=== PATIENT | female | born 1970 | race Caucasian/White ===

== ENCOUNTER → 2018-01-27 | Outpatient (CLI) | payer BC ==
--- NOTE | 2018-01-28 09:17 | US ---
EXAMINATION TYPE: US thyroid st tissue head/neck DATE OF EXAM: 01/27/2018 COMPARISON: NONE CLINICAL HISTORY: E039 hypothyroidism, R53.83 Fatigue. GLAND SIZE: Right Lobe: 4.7 x 1.8 x 1.5 cm Overall Parenchyma: heterogenous Left Lobe: 4.6 x 1.6 x 1.2 cm Overall Parenchyma: heterogeneous Isthmus Thickness: 0.4 cm NODULES RIGHT: # of nodules measured on right: 0 LEFT: # of nodules measured on left: 0 ISTHMUS: # of nodules measured in the isthmus: 0 Diffusely heterogeneous and hypervascular thyroid lobes bilaterally. Within the left neck, there is a hypoechoic area visualized measuring 1.8 x 0.3 x 0.6 cm, probable lymph node. IMPRESSION: Thyroid tissue diffusely heterogeneous without evidence of discrete cystic or solid nodule. Correlate for thyroiditis. 1.8 x 0.6 cm hypoechoic nodule within the left neck likely related to a lymph node.
== END | disposition home or self-care (01) ==
LOC: RADUSMAIN 17:15
PROVIDERS: ATTEND Family Medicine
DX: R22.1 Localized swelling, mass and lump, neck (principal); E03.9 Hypothyroidism, unspecified
CPT/HCPCS: 76536

== ENCOUNTER → 2018-04-22 | Outpatient (CLI) | payer OTHER ==
--- NOTE | 2018-04-23 08:04 | US ---
EXAMINATION TYPE: US thyroid st tissue head/neck DATE OF EXAM: 04/22/2018 COMPARISON: Thyroid ultrasound January 27, 2018 CLINICAL HISTORY: Hypothyroidism E03.9 and fatigue R53.83. Hypothyroidism, follow up left neck lymph node. GLAND SIZE: Right Lobe: 4.9 x 1.5 x 1.9 cm Overall Parenchyma: heterogenous Left Lobe: 5.1 x 1.7 x 1.2 cm Overall Parenchyma: heterogeneous Isthmus Thickness: 0.2 cm NODULES RIGHT: # of nodules measured on right: 0 LEFT: # of nodules measured on left: 0 ISTHMUS: # of nodules measured in the isthmus: 0 Bilateral neck scanned, left neck: hypoechoic area seen measuring 1.8 x 0.3 x 0.6cm, probable lymph n ode. Markedly heterogeneous normal size thyroid is redemonstrated. No definitive or discrete nodule identi fied. Technologist redemonstrated round oval well-circumscribed lesion favoring subcentimeter benign lymph node in the left neck. IMPRESSION: Overall stable findings, markedly heterogeneous normal-sized thyroid without suspicious solid or cyst ic nodule.
== END | disposition home or self-care (01) ==
LOC: RADUSWWP 16:50
PROVIDERS: ATTEND Family Medicine
DX: E03.9 Hypothyroidism, unspecified (principal); R53.83 Other fatigue
CPT/HCPCS: 76536